=== PATIENT | male | born 1965 | race Caucasian/White ===

== ENCOUNTER 2017-04-14 11:09 | Emergency (ER) | payer BC ==
--- NOTE | 2017-04-14 11:29 | UC ---
Skin Complaint HPI - HPI Summary HPI Summary: Tick bite last night or this morning on right flank. Pt is sure the tick has not been present >24hrs. [place] Pt removed the tick himself - History of Current Complaint Hx Obtained From: Patient Onset/Duration: Sudden Onset Skin Exposure Onset/Duration: Hours Ago Onset Severity: Mild Current Severity: Mild Pain Intensity: 2 Pain Scale Used: 0-10 Numeric Location: Other - right flank Character: Pruritus, Pain, Redness Aggravating Factor(s): Touch Alleviating Factor(s): Unknown Associated Signs & Symptoms: Positive: Negative. Negative: Nausea, Vomiting, Fever, Drainage, Red Streaks Related History: Insect Bite/Sting <Twin Bowers - Last Filed: 04/14/17 11:47> <Judith Rinaldi - Last Filed: 04/14/17 12:06> - History of Current Complaint Chief Complaint: [facility] Time Seen by Provider: 04/14/17 11:29 Stated Complaint: TICK BITE - Allergy/Home Medications Allergies/Adverse Reactions: Allergies Allergy/AdvReac Type Severity Reaction Status Date / Time No Known Allergies Allergy Verified 04/14/17 11:30 Home Medications: Home Medications Lisinopril TAB* [Prinivil TAB*] 20 mg PO DAILY 04/14/17 [History Confirmed 04/14] Review of Systems Constitutional: Negative Skin: Other - Right flank 4-5mm area of erythema with central scab ENT: Negative Respiratory: Negative Cardiovascular: Negative Gastrointestinal: Negative Genitourinary: Negative Neurological: Negative Psychological: Negative Is Patient Immunocompromised?: No All Other Systems Reviewed And Are Negative: Yes <Twin Bowers - Last Filed: 04/14/17 11:47> PMH/Surg Hx/FS Hx/Imm Hx Previously Healthy: Yes Cardiovascular History: Hypertension - Family History Known Family History: Positive: Unknown - Social History Occupation: Employed Full-time Lives: With Family Alcohol Use: Rare Substance Use Type: None <Twin Bowers Last Filed: 04/14/17 11:47> Physical Exam Triage Information Reviewed: Yes Appearance: Well-Appearing, No Pain Distress Vital Signs Reviewed: Yes Neck exam: Normal Respiratory Exam: Normal Respiratory: Positive: Chest non-tender, Lungs clear, Normal breath sounds Cardiovascular Exam: Normal Cardiovascular: Positive: RRR, No Murmur Neurological Exam: Normal Neurological: Positive: Alert Psychological Exam: Normal Psychological: Positive: Age Appropriate Behavior Skin: Positive: Other - 4-5mm area of erythema and edema on right flank. Area with central scab consistent with recent tick bite. No streaking or induration. Does not appear to have insect remains within the wound. <Twin Bowers - Last Filed: 04/14/17 11:47> Vital Signs: Initial Vital Signs Temp 97.9 F 04/14/17 11:25 Pulse 79 04/14/17 11:25 Resp 14 04/14/17 11:25 BP 133/90 04/14/17 11:25 Pulse Ox 100 04/14/17 11:25 <Judith Rinaldi - Last Filed: 04/14/17 12:06> Course/Dx - Course Course Of Treatment: Pt removed the tick himself. I do not see any insect remains within the wound. I offered to explore the wound, but it was already starting to scab and the patient declined. He is confident that the tick was not engorged and was present less than 24hrs. He would like doxycyline one time dose. Signs and symptoms of lyme disease were discussed - Differential Diagnoses - Skin Complaint Differential Diagnoses: Cellulitis, Foreign Body - Diagnoses Provider Diagnoses: Tick bite right flank <Twin Bowers - Last Filed: 04/14/17 11:47> Discharge <Twin Bowers - Last Filed: 04/14/17 11:47> <Judith Rinaldi - Last Filed: 04/14/17 12:06> - Discharge Plan Condition: Stable Disposition: HOME Prescriptions: DOXYcycline CAP(*) [DOXYcycline 100MG CAP(*)] 100 mg PO DAILY #2 cap Patient Education Materials: Tick Bite (ED) Additional Instructions: Please monitor the area for any increased swelling, redness, discharge, or pain. If you develop fever, chills, or change in symptoms please call our office or go to ED. Attestation Statement User Type: Provider - I was available for consult. This patient was seen by the GUSTAVO. The patient was not presented to, seen by, or examined by me. -Crow <Judith Rinaldi - Last Filed: 04/14/17 12:06>
[2017-04-14 11:30] VITALS: BP 133/90
== END 2017-04-14 11:54 | disposition home or self-care (01) ==
LOC: UCCORT 11:09
DX: S30.861A Insect bite (nonvenomous) of abdominal wall, initial encounter (principal); L03.311 Cellulitis of abdominal wall; I10 Essential (primary) hypertension; W57.XXXA Bitten or stung by nonvenomous insect and other nonvenomous arthropods, initial encounter
CPT/HCPCS: 99202; G0463